=== PATIENT | female | born 1960 | race Caucasian/White ===

== ENCOUNTER 2021-02-28 10:55 | Emergency (ER) | payer OTHER ==
[~2021-02-28] VITALS: Ht 157.5 cm; Wt 65.8 kg
[2021-02-28] MEDS ORDERED: ONDANSETRON 4 MG/2 ML VIAL IV ONE (11:15)
[2021-02-28] MEDS ORDERED: IV NORMAL SALINE 1000 ML BAG IV ONE (11:15)
[2021-02-28] MEDS ORDERED: MORPHINE SULFATE 2 MG/1 ML DISP.SYRIN IV ONE (11:15)
[2021-02-28] MEDS ORDERED: MORPHINE SULFATE 4 MG/1 ML DISP.SYRIN ONE (11:21)
[2021-02-28] MEDS ORDERED: ONDANSETRON 4 MG/2 ML VIAL ONE (11:21)
--- NOTE | 2021-02-28 11:21 | NUR ---
Saline lock placed to (L) AC. Blood drawn from site. Pt taken to CT by tech.
[2021-02-28 11:22] LABS: HEMATOCRIT 41.3 % (31.2-41.9); MEAN CORPUSCULAR HEMOGLOBIN 31.7 uug (24.7-32.8); MEAN CORPUSCULAR VOLUME 92.6 fL (75.5-95.3); PLATELET COUNT (AUTO) 253 K/uL (179-408)
[2021-02-28 11:23] LABS: *BILIRUBIN,URIN NEGATIVE (NEGATIVE); *BLOOD, URINE 2+ (NEGATIVE); *CLARITY,URINE CLEAR (CLEAR); *COLOR,URINE YELLOW (YELLOW); *KETONES,URINE NEGATIVE (NEGATIVE); *UROBILINOGEN,URINE 0.2 E.U./dl (NORMAL); LEUKOCYTE ESTERASE ,URINE NEGATIVE (NEGATIVE); NITRITE, URINE NEGATIVE (NEGATIVE); PH,URINE 6.5 (5.0-8.0); UGLUCOSE NEGATIVE (NEGATIVE)
[2021-02-28 11:29] LABS: CREATININE 0.8 mg/dL (0.6-1.3); POTASSIUM 3.9 mmol/L (3.5-5.1)
[2021-02-28 11:34] LABS: BILIRUBIN,DIRECT 0.1 mg/dL (0.0-0.2); BILIRUBIN,TOTAL 0.4 mg/dL (0.2-1.0)
[2021-02-28] MEDS ORDERED: KETOROLAC TROMETHAMINE 15 MG INJ IVP ONE (11:45)
[2021-02-28] MEDS ORDERED: KETOROLAC TROMETHAMINE 15 MG INJ ONE (11:57)
[2021-02-28] MEDS ORDERED: TAMS-3 PO (11:58)
[2021-02-28] MEDS ORDERED: HYDR-3972 PO (11:58)
[2021-02-28] MEDS ORDERED: IBUP-1955 PO (11:58)
--- NOTE | 2021-02-28 12:13 | NUR ---
Pt denies any adverse event from medication. States improvement in P/S 5/10 at time of D/C
[2021-02-28 12:14] VITALS: BP 147/84
[2021-02-28 16:36] LABS: BACTERIA,URINE MANY /HPF (NONE SEEN); SQUAMOUS EPITHELIAL CELL,UR NONE SEEN /HPF (NONE SEEN); WBC,URINE 0-3 /HPF (0-3)
[2021-02-28 16:37] LABS: URINE AMORPHOUS URATE MANY /HPF
== END 2021-02-28 12:13 | disposition home or self-care (01) ==
LOC: ER 10:55
DX: N13.2 Hydronephrosis with renal and ureteral calculous obstruction (principal); Z82.49 Family history of ischemic heart disease and other diseases of the circulatory system; Z87.442 Personal history of urinary calculi; E78.5 Hyperlipidemia, unspecified
CPT/HCPCS: 36415; 74176; 80048; 80076; 81001; 83690; 85025; 87086; 96361; 96374; 96375; 99284; J1885; J2270; J2405; A4663; J7030

== ENCOUNTER 2022-08-08 23:14 | Emergency (ER) | payer OTHER ==
[~2022-08-08] VITALS: Ht 157.5 cm; Wt 65.9 kg
[~2022-08-08 23:14] MED LIST: HYDR-3972 PO; IBUP-1955 PO; TAMS-3 PO
--- NOTE | 2022-08-08 23:38 | NUR ---
Dr. Baca in room examining patient. MSE in progress.
[2022-08-08] MEDS ORDERED: predniSONE 50 MG TABLET ONE (23:43)
[2022-08-08] MEDS ORDERED: MAG HYDROX/AL HYDROX/SIMETH 30 ML LIQUID UDC ONE (23:43)
[2022-08-08] MEDS ORDERED: ACYCLOVIR 400 MG TABLET PO ONE (23:45)
[2022-08-08] MEDS ORDERED: predniSONE 50 MG TABLET PO ONE (23:45)
[2022-08-08] MEDS ORDERED: MAG HYDROX/AL HYDROX/SIMETH 30 ML LIQUID UDC PO ONE (23:45)
[2022-08-08] MEDS ORDERED: ACYCLOVIR 200 MG CAPSULE ONE (23:46)
[2022-08-09] MEDS ORDERED: PRED20TA PO (00:33)
[2022-08-09] MEDS ORDERED: VALA10002 PO (00:33)
--- NOTE | 2022-08-09 00:49 | NUR ---
Patient discharged to home in stable condition. Written and verbal after care instructions given. Patient verbalizes understanding of instructions. Stressed follow up or return to ER for worsening s/s. Patient walked out with steady gait accompainied by daughter.
[2022-08-09 00:50] VITALS: BP 148/94
== END 2022-08-09 00:53 | disposition home or self-care (01) ==
LOC: ER 23:18
DX: G51.0 Bell's palsy (principal); E78.5 Hyperlipidemia, unspecified; Z79.1 Long term (current) use of non-steroidal anti-inflammatories (NSAID); Z79.899 Other long term (current) drug therapy
CPT/HCPCS: 99284; J7512; A4663